=== PATIENT | female | born 1990 | race Caucasian/White ===

== ENCOUNTER 2025-03-08 08:35 | Inpatient (IN) | payer MEDICAID, SELFPAY ==
--- NOTE | 2025-03-07 10:05 | ESHP_ITS ---
RE: KEN MONTAGUE : 1990 DATE OF ADMISSION: 03/08/2025 This is a 34-year-old 4 para 3-0-0-3 with due date of 03/11/2025 with intrauterine at 39 weeks and 4 days on 03/08/2025, who presents to labor and delivery for induction. She denies any leaking or bleeding. She reports normal movement. She has occasional contractions. Her care was uncomplicated. ALLERGIES: NO KNOWN DRUG ALLERGIES. MEDICATIONS: 1. multivitamin 1 p.o. daily. 2. Ferrous sulfate 325 mg 1 p.o. daily. PAST MEDICAL HISTORY: Sciatica. FAMILY HISTORY: Down syndrome and spina bifida. OBSTETRIC HISTORY: Three previous full-term normal vaginal deliveries. PAST SURGICAL HISTORY: Denies. REVIEW OF SYSTEMS: Denies any chest pain, palpitations, cough, fever, shortness of breath or lower extremity pain. She denies any headache, change of vision or right upper quadrant pain. PHYSICAL EXAMINATION: VITAL SIGNS: Blood pressure 128/70, heart rate 88, respirations 18, and temperature is 98.2. HEENT: Oropharynx and sclerae are clear. LUNGS: Clear to auscultation bilaterally. HEART: Regular rate and rhythm. ABDOMEN: Gravid, term size, consistent with estimated weight 7-1/4 pounds. EXTREMITIES: Nontender. SKIN: No gross rashes or lesions. NEUROLOGIC: No focal deficit. Cx per RN: 4-5/70/-2/vtx/I. ASSESSMENT AND PLAN: Intrauterine at 39 weeks and 4 days, induction of labor. Anticipate spontaneous vaginal delivery. Informed consent was obtained. The patient was made aware of the risks, complications, alternatives, and benefits of operative vaginal delivery and delivery and agrees with these modes of delivery if indicated. DT: 17:12:36 TT: 17:59:00 Ref: [id number] - TID: [id number] MTDD
[2025-03-08] VITALS (19 sets, daily range): BP systolic 102–138; BP diastolic 56–96; PULSE 71–125; RESP 16–18; TEMP 36.3–37.1; O2SAT 86–100; BMI 28.8
[2025-03-08] MEDS: RINGERS LACTATED 1000 ML 1,000 ML 100 ML IV ×2 (08:50→13:39)
[2025-03-08 09:16] LABS: Basophils # (Auto) 0.0 Thou/mm3 (0.0-0.2); Basophils % (Auto) 1 % (0-2.5); Eosinophils # (Auto) 0.1 Thou/mm3 (0.0-0.5); Eosinophils % (Auto) 1 % (0-10); Hematocrit 32.9 % (36.0-46.0); Hemoglobin 11.2 g/dL (12.0-16.0); Immature Granulocytes Auto 0.13 Thou/mm3 (0.00-0.00); Lymphocytes # (Auto) 1.6 Thou/mm3 (1.0-4.8); Lymphocytes % (Auto) 22 % (10-50); Mean Corpuscular HGB Conc 34.0 g/dl (31.0-37.0); Mean Corpuscular Hemoglobin 28.5 pg (25.0-35.0); Mean Corpuscular Volume 84 fL (80-100); Monocytes # (Auto) 0.6 Thou/mm3 (0.0-0.8); Monocytes % (Auto) 8 % (0-12); Neutrophils # (Auto) 4.8 Thou/mm3 (1.8-7.7); Neutrophils % (Auto) 67 % (37-80); Nucleated Red Blood Cell # 0.00 Thou/mm3 (0.00-0.00); Nucleated Red Blood Cell % 0 /100 WBC (0); Platelet Count 229 Thou/mm3 (140-440); RDW Standard Deviation 39.5 fL (36.4-46.3); Red Blood Count 3.93 Miln/mm3 (4.00-5.20); White Blood Count 7.2 Thou/mm3 (3.6-11.0)
[2025-03-08] MEDS: OXYTOCIN in NS 30 units 30 UNIT/500 ML BAG IV (10:59)
[2025-03-08 11:49] LABS: Syphilis Nonreactive (Nonreactive)
[2025-03-08] MEDS: OXYTOCIN in NS 20 units 20 UNIT/1,000 ML BAG 125 UNIT IV (15:15)
[2025-03-08] MEDS: IBUPROFEN TAB 400 MG TABLET 800 MG PO ×2 (15:35→23:37)
[2025-03-08] MEDS: BENZO/LANO/ALOE (Dermoplast) 60 GM CAN 1 SPRAY TOP (15:35)
--- NOTE | 2025-03-08 17:06 | OBDSUM_ITS ---
Data ([facility]) Data Hx Section: No : 4 Term: 1 : 0 Livin Abortions: Spontaneous & Theraputic: 0 Delivery Data ([facility]) Labor Data Initiation of labor: Induction Induction/Augmentation Agent: Pitocin ROM date: 03/08/25 ROM time: 15:08 Amniotic membrane rupture type: Spontaneous Amniotic fluid description: Clear Delivery Data EDC: 03/11/25 EDC calculated by:: LMP/early US confirmation Onset of labor date: 03/08/25 Onset of labor time: 14:14 Complete dilation date: 03/08/25 Complete dilation time: 15:10 [place] delivery date: 03/08/25 [place] delivery time: 15:14 Gestational age (weeks): 39 Gestational age (days): 4 Placenta delivery date: 03/08/25 Placenta delivery time: 15:18 Stage 1 total time: Labor - Stage 1 Duration 56 minutes Delivered by: Geiling DO Delivery nurse: Vandana Morales RN [place] nurse: Meka Gore RN Harnessmaker Apprentice at delivery: No Support person(s) at delivery: FOB, MIL Delivery Method Delivery method: Normal Vaginal Delivery Presentation: Vertex position: OA Anesthesia Type Anesthesia Type: None Placenta Placenta delivery description: Spontaneous Cord blood sent to lab: Yes cord blood collection: Cord Blood Type Episiotomy Episiotomy description: None EBL Estimated blood loss (ml): 150 Umbilical Cord cord description: 3 Vessels, Nuchal Cord and Tight Complications Complications: None Data ([facility]) [place] Data order: 1 Whitehouse's gender: Male weight (gms): 7 lb 13.928 oz Weight (pounds): 7 lbs and 13.9 ozs length: 7.87 in 1 minute: 8 5 minutes: 9
--- NOTE | 2025-03-08 17:06 | PD.LDDS ---
DS: Providers Provider Date of admission: 03/08/25 08:35 Primary care physician: Emre Castorena MD Admitting Provider: Champ Diaz MD Attending Provider on Admission: Champ Diaz MD Consults: 03/08/25 16:09 Referral Routine Comment: Attending Provider on DC: Champ Diaz MD Discharging Provider: Champ Diaz MD DS: Diagnosis Problem List Completed Was Problem List Reviewed/Reconciled?: Yes Summary/Hosp Course Peripartum Data Delivery Method: Normal Vaginal Delivery Episiotomy Description: None Time Spent with Patient Time attestation: Total time spent providing and/or coordinating discharge services: Exam Vital Signs Temp Pulse Resp BP Pulse Ox 97.8 F 73 18 114/56 L 100 03/08/25 15:30 03/08/25 16:59 03/08/25 15:30 03/08/25 16:59 03/08/25 15:12 Discharge Plan Plan Patient Disposition: HOME (Self Care) Patient condition on transfer: Stable Prescriptions/Referrals Prescriptions/Med Rec: New ibuprofen 600 mg tablet 600 mg PO Q6H PRN (Reason: pain) Qty: 30 0RF hydrocortisone 2.5 % cream with perineal applicator 1 applic NV QDAY PRN (Reason: hemorrhoids) Qty: 30 0RF docusate sodium 100 mg tablet 100 mg PO BID Qty: 30 1RF Continued hydrocortisone [Anusol-HC] 2.5 % cream with perineal applicator 1 applic NV Q6H PRN (Reason: hemorrhoids) Qty: 30 0RF docusate sodium 250 mg capsule 250 mg PO BID PRN (Reason: constipation) Qty: 60 1RF Vitamin 27 mg iron- 800 mcg tablet Patient Comments: TAKE ONE TABLET BY MOUTH EVERY DAY VITAMIN Discontinued ibuprofen 800 mg tablet 800 mg PO Q6H PRN (Reason: pain) Qty: 30 0RF Referrals: Emre Castorena MD [Primary Care Provider, Family Practice] Patient/Caregiver Discharge Instructions Discharge Activity: activity as tolerated Other Discharge Activity Instructions:: Follow up office 6 wks Education Materials: After a Vaginal , Breast Care After , Feel Healthy After Print Language: Armenian Activity Restrictions/Additional Instructions: follow up in 6 weeks Stand Alone Forms: Sarah Award Info., Patient Portal Info Letter Discharge Order Discharge Orders: Discharge (Routine); Ordered 03/09/25 Ordered By: Champ Diaz Planned Discharge Date 03/09/25
[2025-03-08 22:21] LABS: Basophils # (Auto) 0.0 Thou/mm3 (0.0-0.2); Basophils % (Auto) 0 % (0-2.5); Eosinophils # (Auto) 0.0 Thou/mm3 (0.0-0.5); Eosinophils % (Auto) 0 % (0-10); Hematocrit 28.3 % (36.0-46.0); Hemoglobin 9.5 g/dL (12.0-16.0); Immature Granulocytes Auto 0.05 Thou/mm3 (0.00-0.00); Lymphocytes # (Auto) 1.3 Thou/mm3 (1.0-4.8); Lymphocytes % (Auto) 11 % (10-50); Mean Corpuscular HGB Conc 33.6 g/dl (31.0-37.0); Mean Corpuscular Hemoglobin 28.4 pg (25.0-35.0); Mean Corpuscular Volume 85 fL (80-100); Monocytes # (Auto) 1.1 Thou/mm3 (0.0-0.8); Monocytes % (Auto) 9 % (0-12); Neutrophils # (Auto) 9.4 Thou/mm3 (1.8-7.7); Neutrophils % (Auto) 79 % (37-80); Nucleated Red Blood Cell # 0.00 Thou/mm3 (0.00-0.00); Nucleated Red Blood Cell % 0 /100 WBC (0); Platelet Count 178 Thou/mm3 (140-440); RDW Standard Deviation 39.8 fL (36.4-46.3); Red Blood Count 3.35 Miln/mm3 (4.00-5.20); White Blood Count 11.9 Thou/mm3 (3.6-11.0)
[2025-03-09] MEDS: ACETAMINOPHEN 325 MG TABLET 650 MG PO (03:15)
[2025-03-09 04:07] VITALS: BP 110/62; PULSE 84; RESP 18; TEMP 36.7; O2SAT 98
--- NOTE | 2025-03-09 07:09 | ESPR_ITS ---
RE: KEN MONTAGUE : 1990 DATE OF SERVICE: 03/09/2025 SUBJECTIVE: Patient denies any problem or complaints. She is voiding, she is ambulating, she is tolerating diet, she is passing flatus. She denies any excessive vaginal bleeding. She denies any dizziness or lightheadedness. She denies any chest pain, palpitations, shortness of breath or lower extremity pain. OBJECTIVE: Vital Signs: Blood pressure 110/62, heart rate 84, respiration 18, temperature is 98.0, pulse ox is 98% on room air. Lungs: Clear to auscultation bilaterally. Heart: Regular rate and rhythm. Abdomen: Fundus is firm. Extremities: Nontender. Hemoglobin pre-delivery is 11.2, post delivery is 9.5. ASSESSMENT AND PLAN: day #1 status post spontaneous vaginal delivery. Plan, discharge home when baby is cleared. Discharge instructions given. business development consultant. DT: 06:42:58 TT: 07:08:00 Ref: [id number] - TID: [id number]
[2025-03-09 08:15] VITALS: BP 106/68; PULSE 69; RESP 16; TEMP 36.8; O2SAT 98
[2025-03-09] MEDS: IBUPROFEN TAB 400 MG TABLET 800 MG PO (08:36)
[2025-03-09] MEDS: HYDROCORTISONE ACET CR 2.5% 30 GM TUBE PR (09:46)
[2025-03-09] MEDS: DOCUSATE SOD 250 MG CAPSULE PO (09:46)
[2025-03-09 12:00] VITALS: BP 110/68; PULSE 84; RESP 14; TEMP 37.1; O2SAT 98
[2025-03-09 15:13] VITALS: BP 114/75; PULSE 90; RESP 15; TEMP 36.9
== END 2025-03-09 17:17 | disposition home or self-care (01) | DRG 560 ==
LOC: S4SX 16:07 → S4NX 17:39
PROVIDERS: Admitting Provider Specialist; PCP Family Medicine; Visit Provider Specialist
DX: O69.1XX0 Labor and delivery complicated by cord around neck, with compression, not applicable or unspecified (principal); Z3A.39 39 weeks gestation of pregnancy; Z37.0 Single live birth
CPT/HCPCS: 36415; 85025; 86780; 86850; 86900; 86901; J2590; J2795; J3010; J7120; A9270